=== PATIENT | female | born 1965 | race Asian ===

== ENCOUNTER 2018-08-12 07:00 | Day surgery (SDC) | payer OTHER ==
[2018-08-12] MEDS ORDERED: Ringers Lactate 1,000 ML IV ONE (07:24)
[2018-08-12] MEDS ORDERED: LIDOCAINE 1% MPF 5 ML VIAL ONE (08:08)
[2018-08-12] MEDS ORDERED: PROPOFOL 200 MG/20 ML VIAL IV ONE (08:09)
--- NOTE | 2018-08-12 08:32 | ENDO RPT ---
[address], [address] COLONOSCOPY PROCEDURE REPORT EXAM DATE: 08/12/2018 PATIENT NAME: Prerna Quinn MR #: [id number] BIRTHDATE: 1965 ATTENDING: Víctor Barkley DR STATUS: outpatient DIRECTOR OF PUBLIC RELATIONS: Kristian Montoya, Ofelia Thomas RN, and Amanda Montoya INDICATIONS: The patient is a 53 yr old Female here for a colonoscopy due to colon cancer screening PROCEDURE PERFORMED: Screening Colonoscopy and Colonoscopy MEDICATIONS: Per Anesthesia. ESTIMATED BLOOD LOSS: None CONSENT: The patient understands the risks and benefits of the procedure and understands that these risks include, but are not limited to: sedation, allergic reaction, infection, perforation and/or bleeding. Alternative means of evaluation and treatment include, among others: physical exam, x-rays, and/or surgical intervention. The patient elects to proceed with this endoscopic procedure. DESCRIPTION OF PROCEDURE: During intra-op preparation period all mechanical medical equipment was checked for proper function. Hand hygiene and appropriate measures for infection prevention was taken. Procedure, possible complications, alternatives including, but not limited to possibility of bleeding, perforation, tear, infection, sepsis, need for surgery, need for blood transfusion, were explained to the patient. After the risks, benefits and alternatives of the procedure were thoroughly explained, Informed consent was verified, confirmed and timeout was successfully executed by the treatment team. The patient was placed in the left lateral position. A digital rectal exam was performed and revealed internal hemorrhoids. After appropriate level of anesthesia, the scope was passed. The EC-[id number] ([id number]) endoscope was introduced through the anus and advanced to the cecum. The quality of the prep was fair. The instrument was then slowly withdrawn as the colon was fully examined. Scope withdrawal time was 5 minutes. COLON FINDINGS: Mild diverticulosis was noted at the cecum. No bleeding was noted from the diverticulosis. Moderate sized internal hemorrhoids were found. Retroflexed views revealed medium hemorrhoids. The scope was then completely withdrawn from the patient and the procedure terminated. ADVERSE EVENTS: There were no complications. IMPRESSIONS: 1. Mild diverticulosis was noted at the cecum 2. Moderate sized internal hemorrhoids RECOMMENDATIONS: 1. yearly hemoccult starting in 4 years 2. hemorrhoidal hygiene 3. low fiber / diverticular diet RECALL: Return in 10 year(s) for Colonoscopy. Víctor Barkley DR eSigned: Víctor Barkley DR 08/12/2018 8:31 AM cc: CPT CODES: ICD9 CODES: PATIENT NAME: Prerna Quinn MR#: [id number]
[2018-08-12 09:57] VITALS: TEMP 98; O2SAT 98
[2018-08-12 09:58] VITALS: BP 110/70
== END 2018-08-12 09:01 | disposition home or self-care (01) ==
LOC: OR 07:00
PROVIDERS: ATTEND Surgery
PROC: 0DJD8ZZ Inspection of Lower Intestinal Tract, Via Natural or Artificial Opening Endoscopic (ICD-10-PCS; principal; 2018-08-12 09:00)
DX: Z12.11 Encounter for screening for malignant neoplasm of colon (principal); K57.90 Diverticulosis of intestine, part unspecified, without perforation or abscess without bleeding; K64.8 Other hemorrhoids; J45.909 Unspecified asthma, uncomplicated; Z88.8 Allergy status to other drugs, medicaments and biological substances; Z80.0 Family history of malignant neoplasm of digestive organs; Z83.71 Family history of colonic polyps
CPT/HCPCS: J2704

== ENCOUNTER 2019-03-20 09:49 | Emergency (ER) | payer OTHER ==
[2019-03-20] MEDS ORDERED: DIAZEPAM 10 MG/2 ML INJ SYRINGE ONE (10:55)
[2019-03-20] MEDS ORDERED: CIPROFLOXACIN 400mg IV 400 MG/200 ML BAG IV ONE (10:55)
[2019-03-20] MEDS ORDERED: PROMETHAZINE 25 MG/ML VIAL ONE (10:55)
[2019-03-20] MEDS ORDERED: METRONIDAZOLE 500mg IVPB 500 MG/100 ML BAG IV ONE (10:55)
[2019-03-20] MEDS ORDERED: NA CHLORIDE 0.9% 2,000 ML ONE (10:55)
[2019-03-20 11:30] LABS: Absolute Lymphocytes (CBC) 0.6 K/uL (0.7-4.9); Basophils % 0.1 % (0-1.3); Hematocrit 36.2 % (36.0-45.0); Lymphocytes % 6.6 % (15.3-44.8); MPV 7.7 fL (7.6-11.3); Monocytes % 4.9 % (3.3-12.3); RBC Red Blood Cell Count 4.08 M/uL (3.86-4.86)
[2019-03-20 11:43] LABS: Albumin 3.4 g/dL (3.4-5.0); Bilirubin Direct 0.2 mg/dL (0-0.2); Bilirubin Total 0.5 mg/dL (0.2-1.0); Potassium 3.6 mmol/L (3.5-5.1); Protein, Total 7.3 g/dL (6.4-8.2)
[2019-03-20 11:45] LABS: Urine Blood 2+ (NEG); Urine Glucose NEGATIVE (NEG); Urine Protein 1+ (NEG)
[2019-03-20 11:48] LABS: Urine Bacteria >50 /HPF (<20); Urine Culture Reflex Order NOT NEEDED; Urine RBC 20-50 /HPF (NONE SEEN)
--- NOTE | 2019-03-20 12:13 | RAD REPORT ---
EXAM DESCRIPTION: CTAbdomen Pelvis W Contrast - 03/20/2019 12:01 pm CLINICAL HISTORY: Abdominal pain. ABD PAIN COMPARISON: <Comparisons> TECHNIQUE: Biphasic CT imaging of the abdomen and pelvis was performed with 100 ml non-ionic IV cont rast. All CT scans are performed using dose optimization technique as appropriate and may include automated exposure control or mA/KV adjustment according to patient size. FINDINGS: The lung bases are clear. The liver, spleen, pancreas, adrenal glands and kidneys are within normal limits. No bowel obstruction, free air, free fluid or abscess. There is a thickened appearance to the entire colon mucosa and wall compatible with colitis. No pneumatosis coli seen. The appendix is normal. No evidence of significant lymphadenopathy. No suspicious bony findings. IMPRESSION: Mild to moderate pancolitis is seen. This is likely inflammatory or infectious in etiolo gy as are no signs of ischemia seen.
[2019-03-20 13:15] LABS: Blood Morphology Comment NOT SEEN (NOT SEEN); Platelet Estimate ADEQ; Urine White Blood Cell Casts OK
--- NOTE | 2019-03-20 15:00 | ER ---
Nurse's Notes [facility] Name: Prerna Quinn Age: 53 yrs Sex: Female : 1965 Arrival Date: 03/20/2019 Time: 09:51 Bed 25 Private MD: Diagnosis: Traveler's diarrhea;Dehydration;Urinary tract infection, site not specified;Infectious gastroenteritis and colitis, unspecified Presentation: 03/20 09:57 Presenting complaint: Patient states: diarrhea that began Wednesday. Pt also c/o body aa5 aches and chills. Pt denies vomiting. Transition of care: patient was not received from another setting of care. Onset of symptoms was February 2019. Risk Assessment: Do you want to hurt yourself or someone else? Patient reports no desire to harm self or others. Care prior to arrival: None. 09:57 Acuity: AME 3 aa5 09:57 Method Of Arrival: Ambulatory aa5 14:24 Initial Sepsis Screen: Does the patient meet any 2 criteria? HR > 90 bpm. No. Patient's aj1 initial sepsis screen is negative. Does the patient have a suspected source of infection? Yes: Acute abdominal pain. 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 - Social history:: Smoking status: Patient/guardian denies using tobacco. - Ebola Screening: : No symptoms or risks identified at this time. Screenin:10 Abuse screen: Denies threats or abuse. Denies injuries from another. Nutritional aj1 screening: No deficits noted. Tuberculosis screening: No symptoms or risk factors identified. 15:50 Fall Risk IV access (20 points). iw Assessment: 10:10 General: Appears in no apparent distress. uncomfortable, Behavior is calm, cooperative, aj1 appropriate for age. Pain: Complains of pain in abdomen. Neuro: Level of Consciousness is awake, alert, obeys commands, Oriented to person, place, time, situation. Cardiovascular: Patient's skin is warm and dry. Respiratory: Airway is patent Respiratory effort is even, unlabored, Respiratory pattern is regular, symmetrical. GI: Abdomen is flat, non-distended, Bowel sounds present X 4 quads. Reports diarrhea, nausea. : No signs and/or symptoms were reported regarding the genitourinary system. EENT: No signs and/or symptoms were reported regarding the EENT system. Derm: No signs and/or symptoms reported regarding the dermatologic system. Skin is pink, warm \T\ dry. normal. Musculoskeletal: No signs and/or symptoms reported regarding the musculoskeletal system. Circulation, motion, and sensation intact. 11:10 Reassessment: Patient appears in no apparent distress at this time. No changes from aj1 previously documented assessment. Patient and/or family updated on plan of care and expected duration. Pain level reassessed. Patient is alert, oriented x 3, equal unlabored respirations, skin warm/dry/pink. 12:10 Reassessment: Patient and/or family updated on plan of care and expected duration. Pain aj1 level reassessed. General: Appears in no apparent distress. comfortable, Behavior is calm, cooperative, appropriate for age. Neuro: Level of Consciousness is awake, alert, obeys commands. Cardiovascular: Patient's skin is warm and dry. Respiratory: Airway is patent Respiratory effort is even, unlabored, Respiratory pattern is regular, symmetrical. GI: Abdomen is non-distended. Derm: No signs and/or symptoms reported regarding the dermatologic system. Skin is pink, warm \T\ dry. normal. Musculoskeletal: No signs and/or symptoms reported regarding the musculoskeletal system. Circulation, motion, and sensation intact. 13:10 Reassessment: Patient appears in no apparent distress at this time. No changes from aj1 previously documented assessment. Patient and/or family updated on plan of care and expected duration. Pain level reassessed. Patient is alert, oriented x 3, equal unlabored respirations, skin warm/dry/pink. 14:10 Reassessment: Patient appears in no apparent distress at this time. No changes from aj1 previously documented assessment. Patient and/or family updated on plan of care and expected duration. Pain level reassessed. Patient is alert, oriented x 3, equal unlabored respirations, skin warm/dry/pink. 15:10 Reassessment: Patient appears in no apparent distress at this time. No changes from aj1 previously documented assessment. Patient and/or family updated on plan of care and expected duration. Pain level reassessed. Patient is alert, oriented x 3, equal unlabored respirations, skin warm/dry/pink. Vital Signs: 09:58 BP 101 / 63; Pulse 93; Resp 16 S; Temp 98.6(O); Pulse Ox 100% on R/A; Weight 58.97 kg aa5 (R); Height 5 ft. 0 in. (152.40 cm) (R); Pain 7/10; 11:10 BP 110 / 61; Pulse 93; Resp 18; Pulse Ox 100% on R/A; aj1 12:10 BP 106 / 72; Pulse 101; Resp 20; Pulse Ox 99% on R/A; aj1 13:10 BP 102 / 66; Pulse 98; Resp 20; Pulse Ox 97% on R/A; aj1 14:10 BP 104 / 64; Pulse 93; Resp 18; Pulse Ox 98% on R/A; aj1 09:58 Body Mass Index 25.39 (58.97 kg, 152.40 cm) aa ED Course: 09:51 Patient arrived in ED. as 09:57 Arm band placed on. aa5 09:58 Triage completed. aa5 10:09 Margaret Vicente, RN is Primary Nurse. aj1 10:10 Patient has correct armband on for positive identification. Bed in low position. Call [facility] hospital light in reach. Side rails up X 1. 10:10 No provider procedures requiring assistance completed. aj1 10:14 [facility] snw 10:14 Pedrito Quinteros MD is Attending Physician. snw 10:50 Initial lab(s) drawn, by mo, sent to lab. Inserted saline lock: 20 gauge in left aj antecubital area, using aseptic technique. Blood collected. 12:04 CT Abd/Pelvis - IV Contrast Only In Process Unspecified. EDMS 15:50 IV discontinued, intact, bleeding controlled, No redness/swelling at site. Pressure iw dressing applied. Administered Medications: 11:01 Drug: NS 0.9% 1000 ml Route: IV; Rate: 1 bolus; Site: left antecubital; [facility] 12:30 Follow up: IV Status: Completed infusion; IV Intake: 1000ml [facility] 11:01 Drug: Phenergan 6.25 mg Route: IVP; Site: left antecubital; aj1 12:00 Follow up: Response: No adverse reaction; Nausea is decreased 11: Drug: Valium 1 mg Route: IVP; Site: left antecubital; aj1 12:00 Follow up: Response: No adverse reaction; Pain is decreased 11: Drug: Cipro 400 mg Volume: 200 ml; Route: IVPB; Infused Over: 60 mins; Site: left aj1 antecubital; 12:00 Follow up: IV Status: Completed infusion; IV Intake: 200ml 11: Drug: Flagyl 500 mg Volume: 100 ml; Route: IVPB; Rate: 200 ml/hr; Infused Over: 30 aj1 mins; Site: left antecubital; 12:00 Follow up: IV Status: Completed infusion; IV Intake: 100ml 13:58 Drug: NS 0.9% 1000 ml Route: IV; Rate: 125 ml/hr; Site: left antecubital; aj1 15:47 Follow up: IV Status: Completed infusion; IV Intake: 250ml aj Intake: 12:00 IV: 200ml; Total: 200ml. 1 12:00 IV: 100ml; Total: 300ml. aj1 12:30 IV: 1000ml; Total: 1300ml. aj 15:47 IV: 250ml; Total: 1550ml. aj1 Outcome: 14:59 Discharge ordered by . snw 15:50 Discharged to home via wheelchair, with family. iw 15:50 Condition: good 15:50 Discharge instructions given to patient, family, Instructed on discharge instructions, follow up and referral plans. medication usage, Demonstrated understanding of instructions, follow-up care, medications, Prescriptions given X 3. 15:57 Patient left the ED. ae4 Signatures: Dispatcher [employer] EDMargaret Skinner RN RN aj1 Sherry West, PROCESS IMPROVEMENT CONSULTANT-C PROCESS IMPROVEMENT CONSULTANT-Bina Li Irene, RN RN iw Belkis Crocker RN RN aa5 Bernardo Garcia RN RN ae4
--- NOTE | 2019-03-20 15:01 | EDPHYS ---
Physician Documentation [facility] Name: Prerna Quinn Age: 53 yrs Sex: Female : 1965 Arrival Date: 03/20/2019 Time: 09:51 Bed 25 Private MD: ED Physician Pedrito Quinteros HPI: 03/20 10:27 This 53 yrs old Female presents to ER via Ambulatory with complaints of Fever, snw Diarrhea. 10:27 The patient reports fever, not measured (subjective). Onset: The symptoms/episode snw began/occurred suddenly, 2 day(s) ago. Modifying factors: The patient has recently traveled, to [place]. Associated signs and symptoms: Pertinent positives: abdominal pain, decreased appetite, diarrhea, nausea. Severity of symptoms: At their worst the symptoms were moderate. The patient has not experienced similar symptoms in the past. It is unknown whether or not the patient has recently seen a physician. Son with similar s/s, travel. 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 - Social history:: Smoking status: Patient/guardian denies using tobacco. - Ebola Screening: : No symptoms or risks identified at this time. ROS: 10:26 Eyes: Negative for injury, pain, redness, and discharge, ENT: Negative for injury, snw pain, and discharge, Neck: Negative for injury, pain, and swelling, Cardiovascular: Negative for chest pain, palpitations, and edema, Respiratory: Negative for shortness of breath, cough, wheezing, and pleuritic chest pain. 10:26 Back: Negative for injury and pain, : Negative for injury, bleeding, discharge, and swelling, MS/Extremity: Negative for injury and deformity, Skin: Negative for injury, rash, and discoloration, Neuro: Negative for headache, weakness, numbness, tingling, and seizure, Psych: Negative for depression, anxiety, suicide ideation, homicidal ideation, and hallucinations. 10:26 Constitutional: Positive for body aches, chills, fatigue, fever, malaise, poor PO intake. 10:26 Abdomen/GI: Positive for abdominal pain, nausea, diarrhea, abdominal cramps, Negative for black/tarry stool, rectal pain, rectal bleeding, bowel incontinence. Exam: 10:25 Head/Face: Normocephalic, atraumatic. Eyes: Pupils equal round and reactive to light, snw extra-ocular motions intact. Lids and lashes normal. Conjunctiva and sclera are non-icteric and not injected. Cornea within normal limits. Periorbital areas with no swelling, redness, or edema. ENT: Nares patent. No nasal discharge, no septal abnormalities noted. Tympanic membranes are normal and external auditory canals are clear. Oropharynx with no redness, swelling, or masses, exudates, or evidence of obstruction, uvula midline. Mucous membranes moist. Neck: Trachea midline, no thyromegaly or masses palpated, and no cervical lymphadenopathy. Supple, full range of motion without nuchal rigidity, or vertebral point tenderness. No Meningismus. Chest/axilla: Normal chest wall appearance and motion. Nontender with no deformity. No lesions are appreciated. 10:25 Respiratory: Lungs have equal breath sounds bilaterally, clear to auscultation and percussion. No rales, rhonchi or wheezes noted. No increased work of breathing, no retractions or nasal flaring. Back: No spinal tenderness. No costovertebral tenderness. Full range of motion. Skin: Warm, dry with normal turgor. Normal color with no rashes, no lesions, and no evidence of cellulitis. MS/ Extremity: Pulses equal, no cyanosis. Neurovascular intact. Full, normal range of motion. Neuro: Awake and alert, GCS 15, oriented to person, place, time, and situation. Cranial nerves II-XII grossly intact. Motor strength 5/5 in all extremities. Sensory grossly intact. Cerebellar exam normal. Normal gait. Psych: Awake, alert, with orientation to person, place and time. Behavior, mood, and affect are within normal limits. 10:25 Constitutional: The patient appears alert, awake, listless, uncomfortable. 10:25 Cardiovascular: Rate: tachycardic, Rhythm: regular, Pulses: no pulse deficits are appreciated, Edema: is not appreciated. 10:25 Abdomen/GI: Inspection: abdomen appears normal, Bowel sounds: hyperactive, Palpation: moderate abdominal tenderness, in the left lower quadrant. Vital Signs: 09:58 BP 101 / 63; Pulse 93; Resp 16 S; Temp 98.6(O); Pulse Ox 100% on R/A; Weight 58.97 kg aa5 (R); Height 5 ft. 0 in. (152.40 cm) (R); Pain 7/10; 11:10 BP 110 / 61; Pulse 93; Resp 18; Pulse Ox 100% on R/A; aj1 12:10 BP 106 / 72; Pulse 101; Resp 20; Pulse Ox 99% on R/A; aj1 13:10 BP 102 / 66; Pulse 98; Resp 20; Pulse Ox 97% on R/A; aj1 14:10 BP 104 / 64; Pulse 93; Resp 18; Pulse Ox 98% on R/A; aj1 09:58 Body Mass Index 25.39 (58.97 kg, 152.40 cm) aa5 MDM: 10:14 Patient medically screened. snw 13:40 Data reviewed: vital signs, nurses notes, lab test result(s), radiologic studies. Data snw interpreted: Pulse oximetry: on room air is 100 %. Interpretation: normal. Counseling: I had a detailed discussion with the patient and/or guardian regarding: the historical points, exam findings, and any diagnostic results supporting the discharge/admit diagnosis, lab results, radiology results, the need for outpatient follow up. Response to treatment: the patient's symptoms have markedly improved after treatment, sleeping. 03/20 09:58 Order name: Flu; Complete Time: 10:52 snw 03/20 09:58 Order name: Urine Culture snw 03/20 09:58 Order name: Urine Microscopic Only; Complete Time: 11:50 snw 03/20 10:16 Order name: Basic Metabolic Panel; Complete Time: 11:47 snw 03/20 10:16 Order name: CBC with Diff; Complete Time: 13:19 snw 03/20 10:16 Order name: Hepatic Function; Complete Time: 11:47 snw 03/20 10:16 Order name: Lipase; Complete Time: 11:47 snw 03/20 11:32 Order name: Urine Dipstick--Ancillary (enter results); Complete Time: 11:47 bd 03/20 13:26 Order name: CBC Smear Scan EDMS 03/20 09:58 Order name: Urine Dipstick-Ancillary (obtain specimen); Complete Time: 11:18 snw 03/20 10:16 Order name: IV Saline Lock; Complete Time: 11:19 snw 03/20 10:16 Order name: Labs collected and sent; Complete Time: 11:19 snw 03/20 10:16 Order name: CT Abd/Pelvis - IV Contrast Only; Complete Time: 12:36 snw Administered Medications: 11:01 Drug: NS 0.9% 1000 ml Route: IV; Rate: 1 bolus; Site: left antecubital; aj1 12:30 Follow up: IV Status: Completed infusion; IV Intake: 1000ml [facility] 11:01 Drug: Phenergan 6.25 mg Route: IVP; Site: left antecubital; aj1 12:00 Follow up: Response: No adverse reaction; Nausea is decreased aj 11:02 Drug: Valium 1 mg Route: IVP; Site: left antecubital; aj1 12:00 Follow up: Response: No adverse reaction; Pain is decreased aj1 11:02 Drug: Cipro 400 mg Volume: 200 ml; Route: IVPB; Infused Over: 60 mins; Site: left aj1 antecubital; 12:00 Follow up: IV Status: Completed infusion; IV Intake: 200ml aj 11:02 Drug: Flagyl 500 mg Volume: 100 ml; Route: IVPB; Rate: 200 ml/hr; Infused Over: 30 aj1 mins; Site: left antecubital; 12:00 Follow up: IV Status: Completed infusion; IV Intake: 100ml [facility] 13:58 Drug: NS 0.9% 1000 ml Route: IV; Rate: 125 ml/hr; Site: left antecubital; aj1 15:47 Follow up: IV Status: Completed infusion; IV Intake: 250ml aj Disposition: 15:58 Co-signature as Attending Physician, Pedrito Quinteros MD. rn Disposition: 03/20/19 14:59 Discharged to Home. Impression: Traveler's diarrhea, Dehydration, Urinary tract infection, site not specified, Infectious gastroenteritis and colitis, unspecified. - Condition is Stable. - Discharge Instructions: Food Choices to Help Relieve Diarrhea, Adult, Dehydration, Adult, Diarrhea, Adult, Urinary Tract Infection, Adult, Rehydration, Adult, Colitis. - Prescriptions for Flagyl 500 mg Oral Tablet - take 1 tablet by ORAL route every 12 hours for 7 days; 14 tablet. Cipro 500 mg Oral Tablet - take 1 tablet by ORAL route every 12 hours for 7 days; 14 tablet. promethazine 25 mg Oral Tablet - take 1 tablet by ORAL route every 6 hours As needed; 20 tablet. - Work release form, Medication Reconciliation Form, Thank You Letter, Antibiotic Education, Prescription Opioid Use form. - Follow up: Private Physician; When: 2 - 3 days; Reason: Recheck today's complaints, Continuance of care, Re-evaluation by your physician. Follow up: Emergency Department; When: As needed; Reason: Worsening of condition. Signatures: Dispatcher [employer] EDMS Margaret Vicente RN RN aj1 Sherry West, LAMINATION ASSEMBLER-C LAMINATION ASSEMBLER-Csnw Pedrito Quinteros MD MD rn Calderon, Audri, RN RN aa5 Bernardo Garcia RN RN ae4 Corrections: (The following items were deleted from the chart) 14:59 14:58 Chart complete. snw sn 14:59 14:59 03/20/2019 14:59 Discharged to Home. Impression: Traveler's diarrhea; snw Dehydration. Condition is Stable. Forms are Medication Reconciliation Form, Thank You Letter, Antibiotic Education, Prescription Opioid Use. Follow up: Private Physician; When: 2 - 3 days; Reason: Recheck today's complaints, Continuance of care, Re-evaluation by your physician. Follow up: Emergency Department; When: As needed; Reason: Worsening of condition. community health 15:03 14:59 03/20/2019 14:59 Discharged to Home. Impression: Traveler's diarrhea; snw Dehydration; Urinary tract infection, site not specified. Condition is Stable. Forms are Medication Reconciliation Form, Thank You Letter, Antibiotic Education, Prescription Opioid Use. Follow up: Private Physician; When: 2 - 3 days; Reason: Recheck today's complaints, Continuance of care, Re-evaluation by your physician. Follow up: Emergency Department; When: As needed; Reason: Worsening of condition. community health 15:57 15:03 03/20/2019 14:59 Discharged to Home. Impression: Traveler's diarrhea; ae4 Dehydration; Urinary tract infection, site not specified; Infectious gastroenteritis and colitis, unspecified. Condition is Stable. Discharge Instructions: Food Choices to Help Relieve Diarrhea, Adult, Dehydration, Adult, Diarrhea, Adult, Urinary Tract Infection, Adult, Rehydration, Adult. Prescriptions for Flagyl 500 mg Oral Tablet - take 1 tablet by ORAL route every 12 hours for 7 days; 14 tablet, Cipro 500 mg Oral Tablet - take 1 tablet by ORAL route every 12 hours for 7 days; 14 tablet, promethazine 25 mg Oral Tablet - take 1 tablet by ORAL route every 6 hours As needed; 20 tablet. and Forms are Medication Reconciliation Form, Thank You Letter, Antibiotic Education, Prescription Opioid Use, Work release form. Follow up: Private Physician; When: 2 - 3 days; Reason: Recheck today's complaints, Continuance of care, Re-evaluation by your physician. Follow up: Emergency Department; When: As needed; Reason: Worsening of condition. snw
[2019-03-20 17:22] VITALS: TEMP 98.6
[2019-03-20 17:28] VITALS: BP 104/64; O2SAT 98
== END 2019-03-20 15:57 | disposition home or self-care (01) ==
LOC: ER 09:49
DX: A09 Infectious gastroenteritis and colitis, unspecified (principal)
CPT/HCPCS: 36415; 74177; 80048; 80076; 81003; 81015; 83690; 85025; 87086; 87088; 87804; 96361; 96365; 96368; 96375; 99284; J0744; J2550; J3360; J7030; Q9967